=== PATIENT | female | born 1940 | race Caucasian/White ===

== ENCOUNTER 2022-12-23 03:34 | Inpatient (IN) | payer OTHER ==
[~2022-12-23] VITALS: Ht 172.7 cm; Wt 59.0 kg
[2022-12-23 03:34] VITALS: BP_SYST 156; PULSE 82; RESP 16; TEMP 97; O2SAT 93
[2022-12-23] MEDS ORDERED: NACL 0.9% 1,000 ML IV ONE (04:00)
[2022-12-23] MEDS ORDERED: MORPHINE 2 MG/ML INJ. SYRINGE IVP ONE ×2 (04:00→08:45)
[2022-12-23 04:15] LABS: BASOPHILS # (AUTO) 0.1 K/uL (0.0-0.2); BASOPHILS % (AUTO) 0.8 % (0.0-2.0); EOSINOPHILS # (AUTO) 0.1 K/uL (0.0-0.4); EOSINOPHILS % (AUTO) 1.2 % (0.0-4.0); HEMATOCRIT 37.8 % (36-48); HEMOGLOBIN 12.6 g/dL (12.0-16.0); LYMPHOCYTES # (AUTO) 0.9 K/uL (1.0-5.5); LYMPHOCYTES % (AUTO) 13.3 % (20.5-51.5); MEAN CORPUSCULAR HEMOGLOBIN 29 pg (27-31); MEAN CORPUSCULAR HGB CONC 33 % (32-36); MEAN CORPUSCULAR VOLUME 87 fL (79.0-98.0); MONOCYTES # (AUTO) 0.6 K/uL (0.0-1.0); MONOCYTES % (AUTO) 9.1 % (1.7-9.3); NEUTROPHILS # (AUTO) 5.3 K/uL (1.8-7.7); NEUTROPHILS % (AUTO) 75.6 % (40.0-70.0); PLATELET COUNT (AUTO) 419 K/uL (130-430); RED BLOOD CELL COUNT(AUTO) 4.33 MIL/uL (4.2-6.2); RED CELL DISTRIBUTION WIDTH 14.3 % (9.0-15.0)
[2022-12-23 04:30] LABS: ANION GAP 10 (5-15); CALCIUM 9.1 mg/dL (8.4-11.0); CHLORIDE 107 mmol/L (98-107); GLUCOSE 111 mg/dL (70-99); UREA NITROGEN, BLOOD 57 mg/dL (8-21)
[2022-12-23 04:32] LABS: PROTHROMBIN TIME 10.8 SECS (9.5-12.5)
[2022-12-23 04:36] LABS: ALANINE AMINOTRANSFERASE 29 U/L (12-78); ALBUMIN 3.5 g/dL (3.4-4.8); ASPARTATE AMINOTRANSFERASE 17 U/L (10-37); TOTAL BILIRUBIN 0.9 mg/dL (0.0-1.0)
[2022-12-23] MEDS ORDERED: PROPOFOL 200MG/ 20ML VIAL (DIPRIVAN) IV ONE ×2 (05:00→07:30)
[2022-12-23 05:30] LABS: BILIRUBIN,URINE 1+ (NEGATIVE); BLOOD, URINE NEGATIVE (NEGATIVE); CLARITY/URINE CLOUDY (CLEAR); COLOR,URINE YELLOW (YELLOW); GLUCOSE,URINE NEGATIVE (NEGATIVE); KETONES,URINE 1+ (NEGATIVE); LEUKOCYTE ESTERASE ,URINE 1+ (NEGATIVE); NITRITE, URINE NEGATIVE (NEGATIVE); PROTEIN URINE 1+ (NEGATIVE)
[2022-12-23 05:32] LABS: BACTERIA,URINE MANY /HPF (None Seen); RBC,URINE 0-3 /HPF (0-3); WBC,URINE 50-80 /HPF (0-3)
[2022-12-23] MEDS ORDERED: cefTRIAXone 1 GM in D5W 50 ML IV ONE (06:45)
[2022-12-23] MEDS ORDERED: ONDANSETRON HCL 4 MG/2 ML VIAL IVP ONE (07:00)
[2022-12-23] MEDS ORDERED: ALEN70TA84 PO (07:00)
[2022-12-23] MEDS ORDERED: MORPHINE 4 MG INJ. 4 MG/ML VIAL IVP ONE (07:00)
[2022-12-23] MEDS ORDERED: MV-M1CAP15 PO (07:02)
[2022-12-23] MEDS ORDERED: NOR10 PO (07:02)
[2022-12-23] MEDS ORDERED: ASPI-1393 PO (07:02)
[2022-12-23] MEDS ORDERED: SER25 PO (07:05)
[2022-12-23] MEDS ORDERED: LISI-209 PO (07:05)
[2022-12-23] MEDS ORDERED: VITD2000 PO (07:06)
[2022-12-23] MEDS ORDERED: ACET-73 PO (07:06)
[2022-12-23] MEDS ORDERED: LORA-259 PO (07:14)
[2022-12-23] MEDS ORDERED: cefTRIAXone 1 GM VIAL ONE (07:18)
[2022-12-23] MEDS ORDERED: ONDANSETRON HCL 4 MG/2 ML VIAL ONE (07:20)
[2022-12-23] MEDS ORDERED: MORPHINE 2 MG/ML INJ. SYRINGE ONE (08:50)
[2022-12-23] MEDS: D5/0.45 NS 1,000 ML IV SCH ×2 (11:47→21:56)
[2022-12-23 12:03] VITALS: BP_SYST 153; PULSE 95; RESP 18; TEMP 97.6
[2022-12-23 16:49] VITALS: BP_SYST 122; PULSE 82; RESP 18; TEMP 97; O2SAT 94
[2022-12-23 20:30] VITALS: BP_SYST 146; PULSE 76; RESP 18; TEMP 97.7; O2SAT 93
[2022-12-23] MEDS: ONDANSETRON HCL 4 MG/2 ML VIAL IVP PRN (21:56)
[2022-12-23] MEDS: MORPHINE 2 MG/ML INJ. SYRINGE IVP PRN (21:57)
[2022-12-24] VITALS (7 sets, daily range): BP systolic 121–150; PULSE 72–83; RESP 16–20; TEMP 97.6–98.5; O2SAT 93–98
[2022-12-24 07:21] LABS: ANION GAP 8 (5-15); CALCIUM 8.1 mg/dL (8.4-11.0); CHLORIDE 108 mmol/L (98-107); CREATININE 0.62 mg/dL (0.55-1.30); GLUCOSE 136 mg/dL (70-99); UREA NITROGEN, BLOOD 36 mg/dL (8-21)
[2022-12-24 07:22] LABS: BASOPHILS % (AUTO) 0.4 % (0.0-2.0); EOSINOPHILS # (AUTO) 0.2 K/uL (0.0-0.4); EOSINOPHILS % (AUTO) 2.5 % (0.0-4.0); HEMATOCRIT 33.4 % (36-48); HEMOGLOBIN 11.2 g/dL (12.0-16.0); LYMPHOCYTES # (AUTO) 1.2 K/uL (1.0-5.5); LYMPHOCYTES % (AUTO) 15.6 % (20.5-51.5); MEAN CORPUSCULAR HEMOGLOBIN 29 pg (27-31); MEAN CORPUSCULAR HGB CONC 34 % (32-36); MEAN CORPUSCULAR VOLUME 88 fL (79.0-98.0); MONOCYTES # (AUTO) 0.8 K/uL (0.0-1.0); MONOCYTES % (AUTO) 10.7 % (1.7-9.3); NEUTROPHILS # (AUTO) 5.3 K/uL (1.8-7.7); NEUTROPHILS % (AUTO) 70.8 % (40.0-70.0); PLATELET COUNT (AUTO) 359 K/uL (130-430); RED BLOOD CELL COUNT(AUTO) 3.81 MIL/uL (4.2-6.2); RED CELL DISTRIBUTION WIDTH 13.8 % (9.0-15.0); WHITE BLOOD COUNT (AUTO) 7.5 K/uL (4.8-10.8)
[2022-12-24] MEDS: D5/0.45 NS 1,000 ML IV SCH ×2 (08:52→23:03)
[2022-12-24] MEDS ORDERED: MELOXICAM 7.5 MG TABLET PO ONE (13:00)
[2022-12-24] MEDS: ENOXAPARIN SODIUM 60 MG/0.6 ML SYRINGE SUBCUT ONE ×2 (13:28→13:33)
[2022-12-24] MEDS: MORPHINE 4 MG INJ. 4 MG/ML VIAL IVP PRN (16:49)
[2022-12-24] MEDS: ENOXAPARIN SODIUM 60 MG/0.6 ML SYRINGE SUBCUT SCH (21:30)
[2022-12-25] VITALS: BP_SYST 135; PULSE 80; RESP 17; TEMP 97.6; O2SAT 94
[2022-12-25] MEDS: D5/0.45 NS 1,000 ML IV SCH ×3 (01:23→20:15)
[2022-12-25 08:00] VITALS: BP_SYST 148; PULSE 80; RESP 16; TEMP 97.5; O2SAT 96
[2022-12-25] MEDS: MELOXICAM 7.5 MG TABLET PO SCH (08:58)
[2022-12-25] MEDS: ENOXAPARIN SODIUM 60 MG/0.6 ML SYRINGE SUBCUT SCH ×2 (08:59→23:38)
[2022-12-25 16:33] VITALS: BP_SYST 156; PULSE 85; RESP 18; TEMP 98.3; O2SAT 92
[2022-12-25 20:00] VITALS: TEMP 98.4; O2SAT 98
[2022-12-26] VITALS (7 sets, daily range): BP systolic 143–161; PULSE 60–81; RESP 16–20; TEMP 97–98.8; O2SAT 93–98
[2022-12-26 05:31] LABS: BASOPHILS % (AUTO) 0.5 % (0.0-2.0); EOSINOPHILS # (AUTO) 0.2 K/uL (0.0-0.4); EOSINOPHILS % (AUTO) 3.7 % (0.0-4.0); HEMATOCRIT 32.6 % (36-48); HEMOGLOBIN 11.1 g/dL (12.0-16.0); LYMPHOCYTES # (AUTO) 1.4 K/uL (1.0-5.5); LYMPHOCYTES % (AUTO) 23.7 % (20.5-51.5); MEAN CORPUSCULAR HEMOGLOBIN 29 pg (27-31); MEAN CORPUSCULAR HGB CONC 34 % (32-36); MEAN CORPUSCULAR VOLUME 86 fL (79.0-98.0); MONOCYTES # (AUTO) 0.6 K/uL (0.0-1.0); MONOCYTES % (AUTO) 9.7 % (1.7-9.3); NEUTROPHILS # (AUTO) 3.7 K/uL (1.8-7.7); NEUTROPHILS % (AUTO) 62.4 % (40.0-70.0); PLATELET COUNT (AUTO) 365 K/uL (130-430); RED BLOOD CELL COUNT(AUTO) 3.81 MIL/uL (4.2-6.2); RED CELL DISTRIBUTION WIDTH 13.4 % (9.0-15.0)
[2022-12-26 05:36] LABS: ANION GAP 10 (5-15); CALCIUM 7.9 mg/dL (8.4-11.0); CHLORIDE 104 mmol/L (98-107); CREATININE 0.54 mg/dL (0.55-1.30); GLUCOSE 119 mg/dL (70-99); UREA NITROGEN, BLOOD 14 mg/dL (8-21)
[2022-12-26] MEDS: MELOXICAM 7.5 MG TABLET PO SCH (08:41)
[2022-12-26] MEDS: ENOXAPARIN SODIUM 60 MG/0.6 ML SYRINGE SUBCUT SCH ×2 (08:42→22:02)
[2022-12-26 10:53] LABS: BASOPHILS % (AUTO) 0.6 % (0.0-2.0); EOSINOPHILS # (AUTO) 0.2 K/uL (0.0-0.4); EOSINOPHILS % (AUTO) 2.7 % (0.0-4.0); HEMATOCRIT 32.8 % (36-48); HEMOGLOBIN 11.3 g/dL (12.0-16.0); LYMPHOCYTES # (AUTO) 1.2 K/uL (1.0-5.5); LYMPHOCYTES % (AUTO) 19.3 % (20.5-51.5); MEAN CORPUSCULAR HEMOGLOBIN 29 pg (27-31); MEAN CORPUSCULAR HGB CONC 35 % (32-36); MEAN CORPUSCULAR VOLUME 85 fL (79.0-98.0); MONOCYTES # (AUTO) 0.6 K/uL (0.0-1.0); MONOCYTES % (AUTO) 10.4 % (1.7-9.3); PLATELET COUNT (AUTO) 347 K/uL (130-430); RED BLOOD CELL COUNT(AUTO) 3.85 MIL/uL (4.2-6.2); RED CELL DISTRIBUTION WIDTH 13.4 % (9.0-15.0)
[2022-12-26] MEDS: D5/0.45 NS 1,000 ML IV SCH (16:44)
[2022-12-26 17:43] LABS: BASOPHILS % (AUTO) 0.3 % (0.0-2.0); EOSINOPHILS # (AUTO) 0.2 K/uL (0.0-0.4); EOSINOPHILS % (AUTO) 3.5 % (0.0-4.0); HEMATOCRIT 32.7 % (36-48); LYMPHOCYTES # (AUTO) 1.4 K/uL (1.0-5.5); LYMPHOCYTES % (AUTO) 22.4 % (20.5-51.5); MEAN CORPUSCULAR HEMOGLOBIN 29 pg (27-31); MEAN CORPUSCULAR HGB CONC 34 % (32-36); MEAN CORPUSCULAR VOLUME 85 fL (79.0-98.0); MONOCYTES # (AUTO) 0.6 K/uL (0.0-1.0); MONOCYTES % (AUTO) 9.7 % (1.7-9.3); NEUTROPHILS % (AUTO) 64.1 % (40.0-70.0); PLATELET COUNT (AUTO) 358 K/uL (130-430); RED BLOOD CELL COUNT(AUTO) 3.84 MIL/uL (4.2-6.2); RED CELL DISTRIBUTION WIDTH 13.3 % (9.0-15.0); WHITE BLOOD COUNT (AUTO) 6.2 K/uL (4.8-10.8)
[2022-12-27 00:44] VITALS: BP_SYST 155; PULSE 72; RESP 20; TEMP 97.6; O2SAT 96
[2022-12-27] MEDS: D5/0.45 NS 1,000 ML IV SCH ×3 (03:01→22:15)
[2022-12-27] MEDS ORDERED: POTASSIUM CHLORIDE 20 MEQ TAB.PRT.SR PO ONE (07:45)
[2022-12-27 08:00] VITALS: BP_SYST 138; PULSE 55; RESP 18; TEMP 97.7; O2SAT 94
[2022-12-27] MEDS: MELOXICAM 7.5 MG TABLET PO SCH (09:10)
[2022-12-27] MEDS: ENOXAPARIN SODIUM 60 MG/0.6 ML SYRINGE SUBCUT SCH ×2 (09:11→23:00)
[2022-12-27 11:50] VITALS: BP_SYST 135; PULSE 74; RESP 18; TEMP 98.4; O2SAT 96
[2022-12-27] MEDS: MORPHINE 2 MG/ML INJ. SYRINGE IVP PRN (14:55)
[2022-12-27 16:42] VITALS: BP_SYST 139; PULSE 68; RESP 18; TEMP 97.9; O2SAT 96
[2022-12-27] MEDS ORDERED: LORazepam 2 MG/ML VIAL IVP ONE (18:30)
[2022-12-27 20:00] VITALS: O2SAT 94
[2022-12-27 20:12] VITALS: BP_SYST 148; PULSE 68; RESP 18; TEMP 98.1; O2SAT 94
[2022-12-28 02:37] VITALS: BP_SYST 159; PULSE 74; RESP 17; TEMP 97.6; O2SAT 97
[2022-12-28] MEDS: MORPHINE 2 MG/ML INJ. SYRINGE IVP PRN (05:59)
[2022-12-28 07:53] LABS: BASOPHILS % (AUTO) 0.6 % (0.0-2.0); EOSINOPHILS # (AUTO) 0.2 K/uL (0.0-0.4); HEMATOCRIT 33.5 % (36-48); HEMOGLOBIN 11.4 g/dL (12.0-16.0); LYMPHOCYTES # (AUTO) 1.2 K/uL (1.0-5.5); LYMPHOCYTES % (AUTO) 19.7 % (20.5-51.5); MEAN CORPUSCULAR HEMOGLOBIN 29 pg (27-31); MEAN CORPUSCULAR HGB CONC 34 % (32-36); MEAN CORPUSCULAR VOLUME 86 fL (79.0-98.0); MONOCYTES # (AUTO) 0.7 K/uL (0.0-1.0); MONOCYTES % (AUTO) 11.5 % (1.7-9.3); NEUTROPHILS # (AUTO) 3.9 K/uL (1.8-7.7); NEUTROPHILS % (AUTO) 64.2 % (40.0-70.0); PLATELET COUNT (AUTO) 307 K/uL (130-430); RED CELL DISTRIBUTION WIDTH 13.6 % (9.0-15.0); WHITE BLOOD COUNT (AUTO) 6.1 K/uL (4.8-10.8)
[2022-12-28 08:00] VITALS: BP_SYST 156; PULSE 78; RESP 18; TEMP 97.8; O2SAT 96
[2022-12-28 08:10] LABS: ANION GAP 8 (5-15); CALCIUM 7.7 mg/dL (8.4-11.0); CHLORIDE 106 mmol/L (98-107); CREATININE 0.53 mg/dL (0.55-1.30); GLUCOSE 107 mg/dL (70-99); UREA NITROGEN, BLOOD 8 mg/dL (8-21)
[2022-12-28] MEDS: MELOXICAM 7.5 MG TABLET PO SCH ×2 (09:00→14:15)
[2022-12-28] MEDS: ENOXAPARIN SODIUM 60 MG/0.6 ML SYRINGE SUBCUT SCH ×2 (09:00→21:00)
[2022-12-28] MEDS: D5/0.45 NS 1,000 ML IV SCH ×2 (10:53→17:59)
[2022-12-28 12:30] VITALS: BP_SYST 145; PULSE 83; RESP 18; TEMP 97.8; O2SAT 95
[2022-12-28] MEDS ORDERED: ALENDRONATE SODIUM 70 MG TABLET (FOSAMAX) PO SCH (12:45)
[2022-12-28] MEDS ORDERED: [UNRECOGNIZED DRUG - OTHER] PO SCH (12:45)
[2022-12-28] MEDS ORDERED: CHOLECALCIFEROL (VITAMIN D3) 2,000 UNIT TABLET PO ONE (13:00)
[2022-12-28] MEDS ORDERED: MULTIVITS,CA,MINERALS/IRON/FA 1 TABLET PO ONE (13:00)
[2022-12-28] MEDS ORDERED: amLODIPine BESYLATE 10 MG TABLET PO ONE (13:00)
[2022-12-28] MEDS ORDERED: lisinopriL 5 MG TABLET PO ONE (13:00)
[2022-12-28] MEDS ORDERED: ASPIRIN 81 MG TABLET(ECOTRIN) PO ONE (13:00)
[2022-12-28] MEDS ORDERED: ACETAMINOPHEN 500 MG TABLET PO PRN (13:30)
[2022-12-28] MEDS: QUEtiapine FUMARATE 25 MG TABLET PO SCH ×2 (14:17→21:00)
[2022-12-28 16:00] VITALS: BP_SYST 111; PULSE 80; RESP 18; TEMP 96.7; O2SAT 97
[2022-12-28 19:00] VITALS: BP_SYST 127; PULSE 78; RESP 16; TEMP 96.9; O2SAT 96; O2SAT 98
[2022-12-28 20:00] VITALS: BP_SYST 127; PULSE 78; RESP 16; TEMP 96.9; O2SAT 96
[2022-12-29] VITALS (7 sets, daily range): BP systolic 118–157; PULSE 66–87; RESP 17–21; TEMP 98.8–99.6; O2SAT 93–99
[2022-12-29] MEDS: D5/0.45 NS 1,000 ML IV SCH ×3 (03:38→22:50)
[2022-12-29 04:45] LABS: BASOPHILS % (AUTO) 0.4 % (0.0-2.0); EOSINOPHILS # (AUTO) 0.2 K/uL (0.0-0.4); HEMATOCRIT 32.8 % (36-48); HEMOGLOBIN 11.2 g/dL (12.0-16.0); LYMPHOCYTES # (AUTO) 1.2 K/uL (1.0-5.5); LYMPHOCYTES % (AUTO) 18.5 % (20.5-51.5); MEAN CORPUSCULAR HEMOGLOBIN 29 pg (27-31); MEAN CORPUSCULAR HGB CONC 34 % (32-36); MEAN CORPUSCULAR VOLUME 85 fL (79.0-98.0); MONOCYTES # (AUTO) 0.8 K/uL (0.0-1.0); NEUTROPHILS # (AUTO) 4.2 K/uL (1.8-7.7); NEUTROPHILS % (AUTO) 66.1 % (40.0-70.0); PLATELET COUNT (AUTO) 295 K/uL (130-430); RED BLOOD CELL COUNT(AUTO) 3.84 MIL/uL (4.2-6.2); RED CELL DISTRIBUTION WIDTH 13.8 % (9.0-15.0); WHITE BLOOD COUNT (AUTO) 6.4 K/uL (4.8-10.8)
[2022-12-29 05:46] LABS: ALANINE AMINOTRANSFERASE 55 U/L (12-78); ALBUMIN 2.5 g/dL (3.4-4.8); ANION GAP 8 (5-15); ASPARTATE AMINOTRANSFERASE 28 U/L (10-37); CALCIUM 7.8 mg/dL (8.4-11.0); CHLORIDE 105 mmol/L (98-107); CREATININE 0.57 mg/dL (0.55-1.30); GLUCOSE 101 mg/dL (70-99); TOTAL BILIRUBIN 0.6 mg/dL (0.0-1.0); UREA NITROGEN, BLOOD 9 mg/dL (8-21)
[2022-12-29] MEDS: MELOXICAM 7.5 MG TABLET PO SCH (08:39)
[2022-12-29] MEDS: CHOLECALCIFEROL (VITAMIN D3) 2,000 UNIT TABLET PO SCH (08:39)
[2022-12-29] MEDS: ASPIRIN 81 MG TABLET(ECOTRIN) PO SCH (08:39)
[2022-12-29] MEDS: QUEtiapine FUMARATE 25 MG TABLET PO SCH ×3 (08:39→21:32)
[2022-12-29] MEDS: MULTIVITS,CA,MINERALS/IRON/FA 1 TABLET PO SCH (08:40)
[2022-12-29] MEDS: lisinopriL 5 MG TABLET PO SCH (08:40)
[2022-12-29] MEDS: amLODIPine BESYLATE 10 MG TABLET PO SCH (08:40)
[2022-12-29] MEDS: ENOXAPARIN SODIUM 60 MG/0.6 ML SYRINGE SUBCUT SCH ×2 (08:41→21:33)
[2022-12-29] MEDS: MORPHINE 2 MG/ML INJ. SYRINGE IVP PRN ×2 (08:45→13:19)
[2022-12-30] VITALS (7 sets, daily range): BP systolic 107–139; PULSE 70–80; RESP 16–19; TEMP 97.2–98.2; O2SAT 94–97
[2022-12-30] MEDS: MORPHINE 4 MG INJ. 4 MG/ML VIAL IVP PRN (04:44)
[2022-12-30 07:48] LABS: BASOPHILS % (AUTO) 0.5 % (0.0-2.0); EOSINOPHILS # (AUTO) 0.3 K/uL (0.0-0.4); HEMATOCRIT 35.5 % (36-48); LYMPHOCYTES # (AUTO) 1.6 K/uL (1.0-5.5); MEAN CORPUSCULAR HEMOGLOBIN 30 pg (27-31); MEAN CORPUSCULAR HGB CONC 34 % (32-36); MEAN CORPUSCULAR VOLUME 87 fL (79.0-98.0); MONOCYTES # (AUTO) 0.8 K/uL (0.0-1.0); MONOCYTES % (AUTO) 12.7 % (1.7-9.3); NEUTROPHILS # (AUTO) 3.6 K/uL (1.8-7.7); NEUTROPHILS % (AUTO) 56.8 % (40.0-70.0); PLATELET COUNT (AUTO) 286 K/uL (130-430); RED BLOOD CELL COUNT(AUTO) 4.09 MIL/uL (4.2-6.2); RED CELL DISTRIBUTION WIDTH 13.8 % (9.0-15.0); WHITE BLOOD COUNT (AUTO) 6.3 K/uL (4.8-10.8)
[2022-12-30 07:57] LABS: ANION GAP 10 (5-15); CALCIUM 8.3 mg/dL (8.4-11.0); CHLORIDE 107 mmol/L (98-107); CREATININE 0.62 mg/dL (0.55-1.30); GLUCOSE 96 mg/dL (70-99); UREA NITROGEN, BLOOD 10 mg/dL (8-21)
[2022-12-30] MEDS: D5/0.45 NS 1,000 ML IV SCH ×2 (09:20→20:15)
[2022-12-30] MEDS: MELOXICAM 7.5 MG TABLET PO SCH (09:52)
[2022-12-30] MEDS: ASPIRIN 81 MG TABLET(ECOTRIN) PO SCH (09:52)
[2022-12-30] MEDS: lisinopriL 5 MG TABLET PO SCH (09:52)
[2022-12-30] MEDS: CHOLECALCIFEROL (VITAMIN D3) 2,000 UNIT TABLET PO SCH (09:52)
[2022-12-30] MEDS: MULTIVITS,CA,MINERALS/IRON/FA 1 TABLET PO SCH (09:53)
[2022-12-30] MEDS: QUEtiapine FUMARATE 25 MG TABLET PO SCH ×3 (09:53→21:00)
[2022-12-30] MEDS: ENOXAPARIN SODIUM 60 MG/0.6 ML SYRINGE SUBCUT SCH ×2 (09:53→21:00)
[2022-12-30] MEDS: amLODIPine BESYLATE 10 MG TABLET PO SCH (09:53)
[2022-12-31 01:19] VITALS: BP_SYST 138; PULSE 69; RESP 17; TEMP 98.8; O2SAT 97
[2022-12-31] MEDS: MORPHINE 2 MG/ML INJ. SYRINGE IVP PRN ×2 (03:12→09:07)
[2022-12-31] MEDS: D5/0.45 NS 1,000 ML IV SCH ×2 (06:15→14:34)
[2022-12-31 08:00] VITALS: BP_SYST 128; PULSE 75; RESP 18; TEMP 96.9; O2SAT 96; O2SAT 97
[2022-12-31] MEDS: QUEtiapine FUMARATE 25 MG TABLET PO SCH ×3 (09:04→21:55)
[2022-12-31] MEDS: ENOXAPARIN SODIUM 60 MG/0.6 ML SYRINGE SUBCUT SCH ×2 (09:04→21:55)
[2022-12-31] MEDS: amLODIPine BESYLATE 10 MG TABLET PO SCH (09:05)
[2022-12-31] MEDS: lisinopriL 5 MG TABLET PO SCH (09:05)
[2022-12-31] MEDS: MULTIVITS,CA,MINERALS/IRON/FA 1 TABLET PO SCH (09:06)
[2022-12-31] MEDS: ASPIRIN 81 MG TABLET(ECOTRIN) PO SCH (09:06)
[2022-12-31] MEDS: MELOXICAM 7.5 MG TABLET PO SCH (09:06)
[2022-12-31] MEDS: CHOLECALCIFEROL (VITAMIN D3) 2,000 UNIT TABLET PO SCH (09:06)
[2022-12-31 13:13] VITALS: BP_SYST 113; PULSE 78; RESP 16; TEMP 97.1; O2SAT 97
[2022-12-31 18:40] VITALS: BP_SYST 135; PULSE 64; RESP 14; TEMP 96.9; O2SAT 93
[2022-12-31 20:00] VITALS: BP_SYST 135; PULSE 71; RESP 16; TEMP 97.7; O2SAT 95
[2022-12-31 22:25] VITALS: O2SAT 97
[2023-01-01 02:08] VITALS: BP_SYST 152; PULSE 66; RESP 17; TEMP 97.8; O2SAT 95
[2023-01-01] MEDS: D5/0.45 NS 1,000 ML IV SCH (03:24)
[2023-01-01 06:18] LABS: BASOPHILS % (AUTO) 0.5 % (0.0-2.0); EOSINOPHILS # (AUTO) 0.2 K/uL (0.0-0.4); EOSINOPHILS % (AUTO) 5.2 % (0.0-4.0); HEMATOCRIT 32.3 % (36-48); HEMOGLOBIN 11.1 g/dL (12.0-16.0); LYMPHOCYTES # (AUTO) 1.3 K/uL (1.0-5.5); LYMPHOCYTES % (AUTO) 29.3 % (20.5-51.5); MEAN CORPUSCULAR HEMOGLOBIN 29 pg (27-31); MEAN CORPUSCULAR HGB CONC 34 % (32-36); MEAN CORPUSCULAR VOLUME 86 fL (79.0-98.0); MONOCYTES # (AUTO) 0.6 K/uL (0.0-1.0); NEUTROPHILS # (AUTO) 2.2 K/uL (1.8-7.7); PLATELET COUNT (AUTO) 281 K/uL (130-430); RED BLOOD CELL COUNT(AUTO) 3.76 MIL/uL (4.2-6.2); RED CELL DISTRIBUTION WIDTH 13.4 % (9.0-15.0); WHITE BLOOD COUNT (AUTO) 4.4 K/uL (4.8-10.8)
[2023-01-01 06:37] LABS: ANION GAP 8 (5-15); CALCIUM 7.8 mg/dL (8.4-11.0); CHLORIDE 107 mmol/L (98-107); CREATININE 0.53 mg/dL (0.55-1.30); GLUCOSE 108 mg/dL (70-99); UREA NITROGEN, BLOOD 6 mg/dL (8-21)
[2023-01-01 08:00] VITALS: BP_SYST 147; PULSE 80; RESP 18; TEMP 97.6; O2SAT 96
[2023-01-01] MEDS ORDERED: POTASSIUM CHLORIDE 40 MEQ, LIDOCAINE JECT 2% PF 100 MG 75 MG in NS 250 ML IV ONE (08:15)
[2023-01-01] MEDS: lisinopriL 5 MG TABLET PO SCH (08:57)
[2023-01-01] MEDS: amLODIPine BESYLATE 10 MG TABLET PO SCH (08:58)
[2023-01-01] MEDS: QUEtiapine FUMARATE 25 MG TABLET PO SCH ×3 (08:58→21:34)
[2023-01-01] MEDS: ASPIRIN 81 MG TABLET(ECOTRIN) PO SCH (08:58)
[2023-01-01] MEDS: MULTIVITS,CA,MINERALS/IRON/FA 1 TABLET PO SCH (08:58)
[2023-01-01] MEDS: CHOLECALCIFEROL (VITAMIN D3) 2,000 UNIT TABLET PO SCH (08:58)
[2023-01-01] MEDS: MELOXICAM 7.5 MG TABLET PO SCH (08:59)
[2023-01-01] MEDS: ENOXAPARIN SODIUM 60 MG/0.6 ML SYRINGE SUBCUT SCH ×2 (08:59→21:36)
[2023-01-01] MEDS: ONDANSETRON HCL 4 MG/2 ML VIAL IVP PRN (09:04)
[2023-01-01] MEDS: MORPHINE 2 MG/ML INJ. SYRINGE IVP PRN ×3 (09:05→18:03)
[2023-01-01 11:19] VITALS: BP_SYST 110; PULSE 74; RESP 16; TEMP 98.2; O2SAT 94
[2023-01-01] MEDS: KCL 10 mEq in D5/0.45NS 1000mL 1,000 ML IV SCH (14:24)
[2023-01-01 17:26] VITALS: BP_SYST 114; PULSE 76; RESP 17; TEMP 98.4; O2SAT 94
[2023-01-01 20:00] VITALS: PULSE 81; RESP 18; TEMP 97.1; O2SAT 96
[2023-01-02] VITALS (7 sets, daily range): BP systolic 113–138; PULSE 64–85; RESP 13–20; TEMP 96.6–98.1; O2SAT 93–97
[2023-01-02] MEDS: KCL 10 mEq in D5/0.45NS 1000mL 1,000 ML IV SCH ×3 (02:12→22:12)
[2023-01-02 05:50] LABS: BASOPHILS % (AUTO) 0.5 % (0.0-2.0); EOSINOPHILS # (AUTO) 0.3 K/uL (0.0-0.4); EOSINOPHILS % (AUTO) 5.4 % (0.0-4.0); HEMOGLOBIN 10.8 g/dL (12.0-16.0); LYMPHOCYTES # (AUTO) 1.5 K/uL (1.0-5.5); LYMPHOCYTES % (AUTO) 32.5 % (20.5-51.5); MEAN CORPUSCULAR HEMOGLOBIN 29 pg (27-31); MEAN CORPUSCULAR HGB CONC 34 % (32-36); MEAN CORPUSCULAR VOLUME 87 fL (79.0-98.0); MONOCYTES # (AUTO) 0.6 K/uL (0.0-1.0); NEUTROPHILS # (AUTO) 2.3 K/uL (1.8-7.7); NEUTROPHILS % (AUTO) 49.6 % (40.0-70.0); PLATELET COUNT (AUTO) 283 K/uL (130-430); RED CELL DISTRIBUTION WIDTH 13.6 % (9.0-15.0); WHITE BLOOD COUNT (AUTO) 4.6 K/uL (4.8-10.8)
[2023-01-02 06:07] LABS: ANION GAP 7 (5-15); CALCIUM 7.7 mg/dL (8.4-11.0); CHLORIDE 108 mmol/L (98-107); CREATININE 0.61 mg/dL (0.55-1.30); GLUCOSE 107 mg/dL (70-99); UREA NITROGEN, BLOOD 7 mg/dL (8-21)
[2023-01-02] MEDS: MELOXICAM 7.5 MG TABLET PO SCH (10:16)
[2023-01-02] MEDS: CHOLECALCIFEROL (VITAMIN D3) 2,000 UNIT TABLET PO SCH (10:17)
[2023-01-02] MEDS: ASPIRIN 81 MG TABLET(ECOTRIN) PO SCH (10:17)
[2023-01-02] MEDS: amLODIPine BESYLATE 10 MG TABLET PO SCH (10:17)
[2023-01-02] MEDS: lisinopriL 5 MG TABLET PO SCH (10:17)
[2023-01-02] MEDS: MULTIVITS,CA,MINERALS/IRON/FA 1 TABLET PO SCH (10:18)
[2023-01-02] MEDS: QUEtiapine FUMARATE 25 MG TABLET PO SCH ×3 (10:18→22:12)
[2023-01-02] MEDS: ENOXAPARIN SODIUM 60 MG/0.6 ML SYRINGE SUBCUT SCH ×2 (10:18→22:12)
[2023-01-03] VITALS: BP_SYST 142; PULSE 75; RESP 16; TEMP 98.2; O2SAT 96
[2023-01-03] MEDS: MORPHINE 2 MG/ML INJ. SYRINGE IVP PRN (04:34)
[2023-01-03] MEDS: KCL 10 mEq in D5/0.45NS 1000mL 1,000 ML IV SCH ×2 (05:00→10:25)
[2023-01-03] MEDS: LORazepam 1 MG TABLET PO PRN (05:06)
[2023-01-03 08:51] VITALS: BP_SYST 104; PULSE 76; RESP 16; TEMP 99.3; O2SAT 94
[2023-01-03] MEDS: MELOXICAM 7.5 MG TABLET PO SCH (10:33)
[2023-01-03] MEDS: amLODIPine BESYLATE 10 MG TABLET PO SCH (10:33)
[2023-01-03] MEDS: QUEtiapine FUMARATE 25 MG TABLET PO SCH ×3 (10:33→21:00)
[2023-01-03] MEDS: MULTIVITS,CA,MINERALS/IRON/FA 1 TABLET PO SCH (10:34)
[2023-01-03] MEDS: CHOLECALCIFEROL (VITAMIN D3) 2,000 UNIT TABLET PO SCH (10:34)
[2023-01-03] MEDS: lisinopriL 5 MG TABLET PO SCH (10:34)
[2023-01-03] MEDS: ASPIRIN 81 MG TABLET(ECOTRIN) PO SCH (10:34)
[2023-01-03] MEDS: ENOXAPARIN SODIUM 60 MG/0.6 ML SYRINGE SUBCUT SCH ×2 (10:35→21:00)
[2023-01-03 11:24] VITALS: BP_SYST 110; PULSE 76; RESP 16; TEMP 97.6; O2SAT 96
[2023-01-03 15:22] VITALS: BP_SYST 150; PULSE 74; RESP 16; TEMP 96.1; O2SAT 95
[2023-01-04] VITALS: BP_SYST 112; PULSE 78; RESP 16; TEMP 98.1; O2SAT 96
[2023-01-04] MEDS: KCL 10 mEq in D5/0.45NS 1000mL 1,000 ML IV SCH ×3 (03:35→22:45)
[2023-01-04 08:00] VITALS: BP_SYST 156; PULSE 77; RESP 18; TEMP 98.6; O2SAT 98
[2023-01-04 08:05] LABS: BASOPHILS % (AUTO) 0.4 % (0.0-2.0); EOSINOPHILS # (AUTO) 0.2 K/uL (0.0-0.4); EOSINOPHILS % (AUTO) 2.8 % (0.0-4.0); HEMATOCRIT 33.2 % (36-48); HEMOGLOBIN 11.2 g/dL (12.0-16.0); LYMPHOCYTES # (AUTO) 1.7 K/uL (1.0-5.5); LYMPHOCYTES % (AUTO) 22.3 % (20.5-51.5); MEAN CORPUSCULAR HEMOGLOBIN 29 pg (27-31); MEAN CORPUSCULAR HGB CONC 34 % (32-36); MEAN CORPUSCULAR VOLUME 86 fL (79.0-98.0); MONOCYTES # (AUTO) 0.7 K/uL (0.0-1.0); MONOCYTES % (AUTO) 8.8 % (1.7-9.3); NEUTROPHILS # (AUTO) 4.9 K/uL (1.8-7.7); NEUTROPHILS % (AUTO) 65.7 % (40.0-70.0); PLATELET COUNT (AUTO) 354 K/uL (130-430); RED BLOOD CELL COUNT(AUTO) 3.86 MIL/uL (4.2-6.2); RED CELL DISTRIBUTION WIDTH 13.5 % (9.0-15.0); WHITE BLOOD COUNT (AUTO) 7.4 K/uL (4.8-10.8)
[2023-01-04 08:24] LABS: ALANINE AMINOTRANSFERASE 34 U/L (12-78); ALBUMIN 2.4 g/dL (3.4-4.8); ANION GAP 8 (5-15); ASPARTATE AMINOTRANSFERASE 22 U/L (10-37); CHLORIDE 104 mmol/L (98-107); CREATININE 0.59 mg/dL (0.55-1.30); GLUCOSE 99 mg/dL (70-99); PHOSPHORUS 3.7 mg/dL (2.7-4.5); TOTAL BILIRUBIN 0.5 mg/dL (0.0-1.0); UREA NITROGEN, BLOOD 5 mg/dL (8-21)
[2023-01-04] MEDS: MORPHINE 2 MG/ML INJ. SYRINGE IVP PRN ×2 (08:45→20:45)
[2023-01-04] MEDS: ENOXAPARIN SODIUM 60 MG/0.6 ML SYRINGE SUBCUT SCH ×2 (08:49→22:44)
[2023-01-04] MEDS: QUEtiapine FUMARATE 25 MG TABLET PO SCH ×3 (08:50→20:46)
[2023-01-04] MEDS: CHOLECALCIFEROL (VITAMIN D3) 2,000 UNIT TABLET PO SCH (08:51)
[2023-01-04] MEDS: lisinopriL 5 MG TABLET PO SCH (08:51)
[2023-01-04] MEDS: MELOXICAM 7.5 MG TABLET PO SCH (08:51)
[2023-01-04] MEDS: amLODIPine BESYLATE 10 MG TABLET PO SCH (08:51)
[2023-01-04] MEDS: ASPIRIN 81 MG TABLET(ECOTRIN) PO SCH (08:51)
[2023-01-04] MEDS: MULTIVITS,CA,MINERALS/IRON/FA 1 TABLET PO SCH (08:51)
[2023-01-04 11:21] VITALS: BP_SYST 149; PULSE 83; RESP 16; TEMP 97.7; O2SAT 96
[2023-01-04 15:44] VITALS: BP_SYST 136; PULSE 78; RESP 16; TEMP 97.7; O2SAT 93
[2023-01-04 20:00] VITALS: BP_SYST 159; PULSE 85; RESP 18; TEMP 97.8; O2SAT 97
[2023-01-04] MEDS: LORazepam 1 MG TABLET PO PRN (20:46)
[2023-01-05 01:57] VITALS: BP_SYST 132; PULSE 72; RESP 16; TEMP 97.8; O2SAT 95
[2023-01-05] MEDS: MORPHINE 4 MG INJ. 4 MG/ML VIAL IVP PRN ×2 (05:13→06:02)
[2023-01-05] MEDS: KCL 10 mEq in D5/0.45NS 1000mL 1,000 ML IV SCH ×2 (07:00→09:58)
[2023-01-05 08:23] VITALS: BP_SYST 115; PULSE 76; RESP 16; TEMP 97.6; O2SAT 96
[2023-01-05] MEDS: ENOXAPARIN SODIUM 60 MG/0.6 ML SYRINGE SUBCUT SCH ×2 (09:56→22:32)
[2023-01-05] MEDS: QUEtiapine FUMARATE 25 MG TABLET PO SCH ×3 (09:56→22:31)
[2023-01-05] MEDS: ASPIRIN 81 MG TABLET(ECOTRIN) PO SCH (09:56)
[2023-01-05] MEDS: MULTIVITS,CA,MINERALS/IRON/FA 1 TABLET PO SCH (09:57)
[2023-01-05] MEDS: CHOLECALCIFEROL (VITAMIN D3) 2,000 UNIT TABLET PO SCH (09:57)
[2023-01-05] MEDS: MELOXICAM 7.5 MG TABLET PO SCH (09:57)
[2023-01-05] MEDS: lisinopriL 5 MG TABLET PO SCH (09:57)
[2023-01-05] MEDS: amLODIPine BESYLATE 10 MG TABLET PO SCH (09:57)
[2023-01-05 11:36] VITALS: BP_SYST 146; PULSE 79; RESP 16; TEMP 97.6; O2SAT 97
[2023-01-05] MEDS ORDERED: POTASSIUM CHLORIDE 20 MEQ TAB.PRT.SR PO ONE (13:30)
[2023-01-05] MEDS: ACETAMINOPHEN 500 MG TABLET PO PRN (15:04)
[2023-01-05 15:34] VITALS: BP_SYST 137; PULSE 79; RESP 16; TEMP 97.2; O2SAT 94
[2023-01-06 00:23] VITALS: BP_SYST 133; PULSE 67; RESP 19; TEMP 98.3; O2SAT 96
[2023-01-06] MEDS: KCL 10 mEq in D5/0.45NS 1000mL 1,000 ML IV SCH ×3 (04:04→19:09)
[2023-01-06] MEDS: MORPHINE 2 MG/ML INJ. SYRINGE IVP PRN (04:05)
[2023-01-06 04:35] LABS: BASOPHILS % (AUTO) 0.7 % (0.0-2.0); EOSINOPHILS # (AUTO) 0.3 K/uL (0.0-0.4); EOSINOPHILS % (AUTO) 5.7 % (0.0-4.0); HEMATOCRIT 31.1 % (36-48); HEMOGLOBIN 10.6 g/dL (12.0-16.0); LYMPHOCYTES # (AUTO) 1.4 K/uL (1.0-5.5); LYMPHOCYTES % (AUTO) 31.2 % (20.5-51.5); MEAN CORPUSCULAR HEMOGLOBIN 29 pg (27-31); MEAN CORPUSCULAR HGB CONC 34 % (32-36); MEAN CORPUSCULAR VOLUME 85 fL (79.0-98.0); MONOCYTES # (AUTO) 0.6 K/uL (0.0-1.0); MONOCYTES % (AUTO) 14.4 % (1.7-9.3); NEUTROPHILS # (AUTO) 2.1 K/uL (1.8-7.7); PLATELET COUNT (AUTO) 320 K/uL (130-430); RED BLOOD CELL COUNT(AUTO) 3.65 MIL/uL (4.2-6.2); RED CELL DISTRIBUTION WIDTH 13.6 % (9.0-15.0); WHITE BLOOD COUNT (AUTO) 4.4 K/uL (4.8-10.8)
[2023-01-06 05:02] LABS: ANION GAP 6 (5-15); CALCIUM 8.1 mg/dL (8.4-11.0); CHLORIDE 107 mmol/L (98-107); CREATININE 0.59 mg/dL (0.55-1.30); GLUCOSE 89 mg/dL (70-99); UREA NITROGEN, BLOOD 10 mg/dL (8-21)
[2023-01-06 08:12] VITALS: BP_SYST 129; PULSE 72; RESP 18; TEMP 99; O2SAT 95
[2023-01-06] MEDS: ENOXAPARIN SODIUM 60 MG/0.6 ML SYRINGE SUBCUT SCH ×2 (10:14→20:50)
[2023-01-06] MEDS: MELOXICAM 7.5 MG TABLET PO SCH (10:14)
[2023-01-06] MEDS: ASPIRIN 81 MG TABLET(ECOTRIN) PO SCH (10:14)
[2023-01-06] MEDS: MULTIVITS,CA,MINERALS/IRON/FA 1 TABLET PO SCH (10:14)
[2023-01-06] MEDS: CHOLECALCIFEROL (VITAMIN D3) 2,000 UNIT TABLET PO SCH (10:14)
[2023-01-06] MEDS: QUEtiapine FUMARATE 25 MG TABLET PO SCH ×3 (10:14→20:50)
[2023-01-06] MEDS: lisinopriL 5 MG TABLET PO SCH (10:14)
[2023-01-06] MEDS: amLODIPine BESYLATE 10 MG TABLET PO SCH (10:15)
[2023-01-06 13:14] VITALS: BP_SYST 114; PULSE 75; RESP 16; TEMP 97.2; O2SAT 94
[2023-01-06 18:19] VITALS: BP_SYST 126; PULSE 78; RESP 16; TEMP 97.7; O2SAT 96
[2023-01-06 20:00] VITALS: O2SAT 96
[2023-01-06 20:30] VITALS: BP_SYST 116; PULSE 74; RESP 16; TEMP 97.6; O2SAT 96
[2023-01-07 00:18] VITALS: BP_SYST 123; PULSE 80; RESP 18; TEMP 98; O2SAT 96
[2023-01-07 08:00] VITALS: BP_SYST 148; PULSE 76; RESP 16; TEMP 97.8; O2SAT 98
[2023-01-07] MEDS: KCL 10 mEq in D5/0.45NS 1000mL 1,000 ML IV SCH ×2 (08:05→20:17)
[2023-01-07] MEDS: MELOXICAM 7.5 MG TABLET PO SCH (09:23)
[2023-01-07] MEDS: CHOLECALCIFEROL (VITAMIN D3) 2,000 UNIT TABLET PO SCH (09:23)
[2023-01-07] MEDS: QUEtiapine FUMARATE 25 MG TABLET PO SCH ×3 (09:23→21:58)
[2023-01-07] MEDS: ASPIRIN 81 MG TABLET(ECOTRIN) PO SCH (09:23)
[2023-01-07] MEDS: MULTIVITS,CA,MINERALS/IRON/FA 1 TABLET PO SCH (09:23)
[2023-01-07] MEDS: amLODIPine BESYLATE 10 MG TABLET PO SCH (09:24)
[2023-01-07] MEDS: lisinopriL 5 MG TABLET PO SCH (09:24)
[2023-01-07] MEDS: ENOXAPARIN SODIUM 60 MG/0.6 ML SYRINGE SUBCUT SCH ×2 (09:25→21:58)
[2023-01-07 11:18] VITALS: BP_SYST 123; PULSE 77; RESP 16; TEMP 97.2; O2SAT 98
[2023-01-07 14:39] VITALS: O2SAT 98
[2023-01-07 15:07] VITALS: BP_SYST 131; PULSE 67; RESP 16; TEMP 97.7; O2SAT 94
[2023-01-07 20:00] VITALS: BP_SYST 126; PULSE 70; RESP 16; TEMP 98; O2SAT 98
[2023-01-08 01:20] VITALS: O2SAT 97
[2023-01-08 01:45] VITALS: BP_SYST 130; PULSE 67; RESP 16; TEMP 97.4; O2SAT 94
[2023-01-08] MEDS: KCL 10 mEq in D5/0.45NS 1000mL 1,000 ML IV SCH ×2 (06:42→15:15)
[2023-01-08 09:46] VITALS: BP_SYST 122; PULSE 87; RESP 20; TEMP 99; O2SAT 98
[2023-01-08] MEDS: CHOLECALCIFEROL (VITAMIN D3) 2,000 UNIT TABLET PO SCH (09:48)
[2023-01-08] MEDS: MULTIVITS,CA,MINERALS/IRON/FA 1 TABLET PO SCH (09:48)
[2023-01-08] MEDS: MELOXICAM 7.5 MG TABLET PO SCH (09:48)
[2023-01-08] MEDS: amLODIPine BESYLATE 10 MG TABLET PO SCH (09:49)
[2023-01-08] MEDS: lisinopriL 5 MG TABLET PO SCH (09:49)
[2023-01-08] MEDS: QUEtiapine FUMARATE 25 MG TABLET PO SCH ×3 (09:49→21:40)
[2023-01-08] MEDS: ASPIRIN 81 MG TABLET(ECOTRIN) PO SCH (09:49)
[2023-01-08] MEDS: ENOXAPARIN SODIUM 60 MG/0.6 ML SYRINGE SUBCUT SCH ×2 (09:50→21:39)
[2023-01-08] MEDS: ACETAMINOPHEN 500 MG TABLET PO PRN ×2 (10:11→21:40)
[2023-01-08 11:22] VITALS: BP_SYST 105; PULSE 82; RESP 20; TEMP 99.5; O2SAT 96
[2023-01-08 16:52] VITALS: BP_SYST 110; PULSE 80; RESP 20; TEMP 98.6; O2SAT 96
[2023-01-08 19:40] VITALS: BP_SYST 121; PULSE 63; RESP 18; TEMP 98.6; O2SAT 95
[2023-01-09 00:21] VITALS: BP_SYST 115; PULSE 82; RESP 18; TEMP 98.1; O2SAT 97
[2023-01-09] MEDS: KCL 10 mEq in D5/0.45NS 1000mL 1,000 ML IV SCH ×3 (01:59→21:44)
[2023-01-09 04:42] LABS: BASOPHILS % (AUTO) 0.5 % (0.0-2.0); EOSINOPHILS # (AUTO) 0.3 K/uL (0.0-0.4); EOSINOPHILS % (AUTO) 3.8 % (0.0-4.0); HEMOGLOBIN 9.9 g/dL (12.0-16.0); LYMPHOCYTES # (AUTO) 2.2 K/uL (1.0-5.5); LYMPHOCYTES % (AUTO) 26.7 % (20.5-51.5); MEAN CORPUSCULAR HEMOGLOBIN 29 pg (27-31); MEAN CORPUSCULAR HGB CONC 34 % (32-36); MEAN CORPUSCULAR VOLUME 85 fL (79.0-98.0); MONOCYTES # (AUTO) 0.7 K/uL (0.0-1.0); MONOCYTES % (AUTO) 9.2 % (1.7-9.3); NEUTROPHILS # (AUTO) 4.8 K/uL (1.8-7.7); NEUTROPHILS % (AUTO) 59.8 % (40.0-70.0); PLATELET COUNT (AUTO) 317 K/uL (130-430); RED CELL DISTRIBUTION WIDTH 13.8 % (9.0-15.0)
[2023-01-09 05:16] LABS: ALANINE AMINOTRANSFERASE 25 U/L (12-78); ALBUMIN 2.2 g/dL (3.4-4.8); ANION GAP 7 (5-15); ASPARTATE AMINOTRANSFERASE 13 U/L (10-37); CALCIUM 7.9 mg/dL (8.4-11.0); CHLORIDE 106 mmol/L (98-107); CREATININE 0.65 mg/dL (0.55-1.30); GLUCOSE 96 mg/dL (70-99); TOTAL BILIRUBIN 0.4 mg/dL (0.0-1.0); UREA NITROGEN, BLOOD 10 mg/dL (8-21)
[2023-01-09 06:17] LABS: BASOPHILS % (AUTO) 0.5 % (0.0-2.0); EOSINOPHILS # (AUTO) 0.3 K/uL (0.0-0.4); EOSINOPHILS % (AUTO) 3.2 % (0.0-4.0); HEMOGLOBIN 9.8 g/dL (12.0-16.0); LYMPHOCYTES # (AUTO) 2.1 K/uL (1.0-5.5); LYMPHOCYTES % (AUTO) 26.3 % (20.5-51.5); MEAN CORPUSCULAR HEMOGLOBIN 29 pg (27-31); MEAN CORPUSCULAR HGB CONC 34 % (32-36); MEAN CORPUSCULAR VOLUME 86 fL (79.0-98.0); MONOCYTES # (AUTO) 0.8 K/uL (0.0-1.0); MONOCYTES % (AUTO) 9.7 % (1.7-9.3); NEUTROPHILS # (AUTO) 4.7 K/uL (1.8-7.7); NEUTROPHILS % (AUTO) 60.3 % (40.0-70.0); PLATELET COUNT (AUTO) 312 K/uL (130-430); RED BLOOD CELL COUNT(AUTO) 3.37 MIL/uL (4.2-6.2); RED CELL DISTRIBUTION WIDTH 13.7 % (9.0-15.0); WHITE BLOOD COUNT (AUTO) 7.8 K/uL (4.8-10.8)
[2023-01-09 07:50] VITALS: BP_SYST 134; PULSE 63; RESP 23; TEMP 97.8; O2SAT 99
[2023-01-09] MEDS: MELOXICAM 7.5 MG TABLET PO SCH (09:02)
[2023-01-09] MEDS: MULTIVITS,CA,MINERALS/IRON/FA 1 TABLET PO SCH (09:02)
[2023-01-09] MEDS: CHOLECALCIFEROL (VITAMIN D3) 2,000 UNIT TABLET PO SCH (09:03)
[2023-01-09] MEDS: ASPIRIN 81 MG TABLET(ECOTRIN) PO SCH (09:03)
[2023-01-09] MEDS: QUEtiapine FUMARATE 25 MG TABLET PO SCH ×3 (09:04→21:47)
[2023-01-09] MEDS: ENOXAPARIN SODIUM 60 MG/0.6 ML SYRINGE SUBCUT SCH ×2 (09:04→21:49)
[2023-01-09] MEDS: lisinopriL 5 MG TABLET PO SCH (09:05)
[2023-01-09] MEDS: amLODIPine BESYLATE 10 MG TABLET PO SCH (09:05)
[2023-01-09] MEDS: ACETAMINOPHEN 500 MG TABLET PO PRN (10:20)
[2023-01-09] MEDS ORDERED: traMADol HCL HCL 50 MG TABLET (ULTRAM) PO ONE (10:45)
[2023-01-09 11:22] VITALS: BP_SYST 104; PULSE 66; RESP 18; TEMP 98; O2SAT 97
[2023-01-09 16:13] VITALS: BP_SYST 122; PULSE 73; RESP 18; TEMP 98.2; O2SAT 96
[2023-01-09 20:00] VITALS: BP_SYST 115; PULSE 76; RESP 18; TEMP 97.5; O2SAT 93
[2023-01-09 20:15] VITALS: O2SAT 94
[2023-01-09] MEDS: HYDROcodone/ACETAMIN 5-325 MG TAB (NORCO/ VICODIN) PO PRN (21:46)
[2023-01-10 00:21] VITALS: BP_SYST 128; PULSE 68; RESP 16; TEMP 97.4; O2SAT 95
[2023-01-10] MEDS: KCL 10 mEq in D5/0.45NS 1000mL 1,000 ML IV SCH ×2 (07:31→18:18)
[2023-01-10 07:57] VITALS: BP_SYST 117; PULSE 60; RESP 14; TEMP 97.4; O2SAT 96
[2023-01-10] MEDS: MELOXICAM 7.5 MG TABLET PO SCH (09:20)
[2023-01-10] MEDS: MULTIVITS,CA,MINERALS/IRON/FA 1 TABLET PO SCH (09:20)
[2023-01-10] MEDS: lisinopriL 5 MG TABLET PO SCH (09:20)
[2023-01-10] MEDS: ASPIRIN 81 MG TABLET(ECOTRIN) PO SCH (09:20)
[2023-01-10] MEDS: amLODIPine BESYLATE 5 MG TABLET PO SCH (09:20)
[2023-01-10] MEDS: QUEtiapine FUMARATE 25 MG TABLET PO SCH ×3 (09:20→20:41)
[2023-01-10] MEDS: ENOXAPARIN SODIUM 60 MG/0.6 ML SYRINGE SUBCUT SCH ×3 (09:21→21:00)
[2023-01-10] MEDS: CHOLECALCIFEROL (VITAMIN D3) 2,000 UNIT TABLET PO SCH (09:21)
[2023-01-10] MEDS: HYDROcodone/ACETAMIN 5-325 MG TAB (NORCO/ VICODIN) PO PRN ×2 (10:07→20:41)
[2023-01-10 11:54] VITALS: BP_SYST 110; PULSE 84; RESP 18; TEMP 98.4; O2SAT 93
[2023-01-10 18:10] VITALS: BP_SYST 114; PULSE 74; RESP 18; TEMP 98.8; O2SAT 96
[2023-01-10 22:42] VITALS: O2SAT 94
[2023-01-11 02:05] VITALS: BP_SYST 143; PULSE 74; RESP 17; TEMP 98.6; O2SAT 99
[2023-01-11 05:53] LABS: BASOPHILS % (AUTO) 0.5 % (0.0-2.0); EOSINOPHILS # (AUTO) 0.3 K/uL (0.0-0.4); EOSINOPHILS % (AUTO) 3.9 % (0.0-4.0); HEMATOCRIT 30.9 % (36-48); HEMOGLOBIN 10.5 g/dL (12.0-16.0); LYMPHOCYTES # (AUTO) 1.7 K/uL (1.0-5.5); LYMPHOCYTES % (AUTO) 22.6 % (20.5-51.5); MEAN CORPUSCULAR HEMOGLOBIN 29 pg (27-31); MEAN CORPUSCULAR HGB CONC 34 % (32-36); MEAN CORPUSCULAR VOLUME 86 fL (79.0-98.0); MONOCYTES # (AUTO) 0.7 K/uL (0.0-1.0); MONOCYTES % (AUTO) 8.8 % (1.7-9.3); NEUTROPHILS # (AUTO) 4.9 K/uL (1.8-7.7); NEUTROPHILS % (AUTO) 64.2 % (40.0-70.0); PLATELET COUNT (AUTO) 361 K/uL (130-430); RED CELL DISTRIBUTION WIDTH 13.5 % (9.0-15.0); WHITE BLOOD COUNT (AUTO) 7.6 K/uL (4.8-10.8)
[2023-01-11 06:03] LABS: ANION GAP 4 (5-15); CALCIUM 8.4 mg/dL (8.4-11.0); CHLORIDE 105 mmol/L (98-107); CREATININE 0.66 mg/dL (0.55-1.30); GLUCOSE 106 mg/dL (70-99); UREA NITROGEN, BLOOD 13 mg/dL (8-21)
[2023-01-11 08:00] VITALS: BP_SYST 132; PULSE 80; RESP 20; TEMP 98.2; O2SAT 98
[2023-01-11] MEDS: CHOLECALCIFEROL (VITAMIN D3) 2,000 UNIT TABLET PO SCH (08:49)
[2023-01-11] MEDS: QUEtiapine FUMARATE 25 MG TABLET PO SCH ×3 (08:49→21:39)
[2023-01-11] MEDS: lisinopriL 5 MG TABLET PO SCH (08:49)
[2023-01-11] MEDS: MULTIVITS,CA,MINERALS/IRON/FA 1 TABLET PO SCH (08:50)
[2023-01-11] MEDS: amLODIPine BESYLATE 5 MG TABLET PO SCH (08:50)
[2023-01-11] MEDS: ASPIRIN 81 MG TABLET(ECOTRIN) PO SCH (08:51)
[2023-01-11] MEDS: ENOXAPARIN SODIUM 60 MG/0.6 ML SYRINGE SUBCUT SCH ×2 (08:52→21:39)
[2023-01-11] MEDS: KCL 10 mEq in D5/0.45NS 1000mL 1,000 ML IV SCH ×2 (08:53→17:15)
[2023-01-11] MEDS: MELOXICAM 7.5 MG TABLET PO SCH (08:53)
[2023-01-11 11:35] VITALS: BP_SYST 121; PULSE 86; RESP 19; TEMP 98.6; O2SAT 95
[2023-01-11 16:54] VITALS: BP_SYST 120; PULSE 77; RESP 16; TEMP 98.4; O2SAT 95
[2023-01-11 20:12] VITALS: BP_SYST 118; PULSE 77; RESP 17; TEMP 98; O2SAT 95
[2023-01-11 22:24] VITALS: O2SAT 95
[2023-01-12 00:48] VITALS: BP_SYST 148; PULSE 74; RESP 18; TEMP 98.4; O2SAT 93
[2023-01-12] MEDS: KCL 10 mEq in D5/0.45NS 1000mL 1,000 ML IV SCH ×3 (03:57→23:00)
[2023-01-12 05:16] LABS: BASOPHILS % (AUTO) 0.6 % (0.0-2.0); EOSINOPHILS # (AUTO) 0.2 K/uL (0.0-0.4); EOSINOPHILS % (AUTO) 2.7 % (0.0-4.0); HEMATOCRIT 29.8 % (36-48); HEMOGLOBIN 10.3 g/dL (12.0-16.0); LYMPHOCYTES # (AUTO) 1.4 K/uL (1.0-5.5); LYMPHOCYTES % (AUTO) 18.6 % (20.5-51.5); MEAN CORPUSCULAR HEMOGLOBIN 30 pg (27-31); MEAN CORPUSCULAR HGB CONC 35 % (32-36); MEAN CORPUSCULAR VOLUME 86 fL (79.0-98.0); MONOCYTES # (AUTO) 0.7 K/uL (0.0-1.0); MONOCYTES % (AUTO) 8.5 % (1.7-9.3); NEUTROPHILS # (AUTO) 5.4 K/uL (1.8-7.7); NEUTROPHILS % (AUTO) 69.6 % (40.0-70.0); PLATELET COUNT (AUTO) 349 K/uL (130-430); RED BLOOD CELL COUNT(AUTO) 3.48 MIL/uL (4.2-6.2); RED CELL DISTRIBUTION WIDTH 13.6 % (9.0-15.0); WHITE BLOOD COUNT (AUTO) 7.7 K/uL (4.8-10.8)
[2023-01-12 06:03] LABS: ALANINE AMINOTRANSFERASE 23 U/L (12-78); ALBUMIN 2.5 g/dL (3.4-4.8); ANION GAP 5 (5-15); ASPARTATE AMINOTRANSFERASE 14 U/L (10-37); CALCIUM 8.2 mg/dL (8.4-11.0); CHLORIDE 102 mmol/L (98-107); CREATININE 0.61 mg/dL (0.55-1.30); GLUCOSE 106 mg/dL (70-99); TOTAL BILIRUBIN 0.4 mg/dL (0.0-1.0); UREA NITROGEN, BLOOD 9 mg/dL (8-21)
[2023-01-12 07:50] VITALS: O2SAT 99
[2023-01-12 08:00] VITALS: BP_SYST 118; PULSE 66; RESP 18; TEMP 97.9; O2SAT 99
[2023-01-12] MEDS: MULTIVITS,CA,MINERALS/IRON/FA 1 TABLET PO SCH (10:24)
[2023-01-12] MEDS: ENOXAPARIN SODIUM 60 MG/0.6 ML SYRINGE SUBCUT SCH ×2 (10:24→21:08)
[2023-01-12] MEDS: ASPIRIN 81 MG TABLET(ECOTRIN) PO SCH (10:24)
[2023-01-12] MEDS: CHOLECALCIFEROL (VITAMIN D3) 2,000 UNIT TABLET PO SCH (10:24)
[2023-01-12] MEDS: MELOXICAM 7.5 MG TABLET PO SCH (10:24)
[2023-01-12] MEDS: amLODIPine BESYLATE 5 MG TABLET PO SCH (10:25)
[2023-01-12] MEDS: lisinopriL 5 MG TABLET PO SCH (10:26)
[2023-01-12] MEDS: QUEtiapine FUMARATE 25 MG TABLET PO SCH ×3 (10:26→21:08)
[2023-01-12 11:20] VITALS: BP_SYST 133; PULSE 69; RESP 16; TEMP 97.7; O2SAT 94
[2023-01-12 15:42] VITALS: BP_SYST 131; PULSE 79; RESP 16; TEMP 97.7; O2SAT 95
[2023-01-12 20:00] VITALS: BP_SYST 152; PULSE 69; RESP 18; TEMP 98; O2SAT 96
[2023-01-13] VITALS: BP_SYST 147; PULSE 87; RESP 18; TEMP 98.4; O2SAT 92
[2023-01-13 05:15] LABS: BASOPHILS % (AUTO) 0.4 % (0.0-2.0); EOSINOPHILS # (AUTO) 0.1 K/uL (0.0-0.4); EOSINOPHILS % (AUTO) 1.2 % (0.0-4.0); HEMATOCRIT 31.7 % (36-48); HEMOGLOBIN 10.7 g/dL (12.0-16.0); LYMPHOCYTES # (AUTO) 1.6 K/uL (1.0-5.5); MEAN CORPUSCULAR HEMOGLOBIN 29 pg (27-31); MEAN CORPUSCULAR HGB CONC 34 % (32-36); MEAN CORPUSCULAR VOLUME 85 fL (79.0-98.0); MONOCYTES % (AUTO) 8.7 % (1.7-9.3); NEUTROPHILS # (AUTO) 8.7 K/uL (1.8-7.7); NEUTROPHILS % (AUTO) 75.7 % (40.0-70.0); PLATELET COUNT (AUTO) 397 K/uL (130-430); RED BLOOD CELL COUNT(AUTO) 3.72 MIL/uL (4.2-6.2); RED CELL DISTRIBUTION WIDTH 13.9 % (9.0-15.0); WHITE BLOOD COUNT (AUTO) 11.5 K/uL (4.8-10.8)
[2023-01-13 05:32] LABS: ANION GAP 5 (5-15); CALCIUM 8.1 mg/dL (8.4-11.0); CHLORIDE 97 mmol/L (98-107); CREATININE 0.63 mg/dL (0.55-1.30); GLUCOSE 109 mg/dL (70-99); UREA NITROGEN, BLOOD 7 mg/dL (8-21)
[2023-01-13 08:00] VITALS: O2SAT 98
[2023-01-13] MEDS: KCL 10 mEq in D5/0.45NS 1000mL 1,000 ML IV SCH ×3 (08:11→20:37)
[2023-01-13] MEDS: MELOXICAM 7.5 MG TABLET PO SCH (09:48)
[2023-01-13] MEDS: ASPIRIN 81 MG TABLET(ECOTRIN) PO SCH (09:48)
[2023-01-13] MEDS: amLODIPine BESYLATE 5 MG TABLET PO SCH (09:49)
[2023-01-13] MEDS: lisinopriL 5 MG TABLET PO SCH (09:50)
[2023-01-13] MEDS: QUEtiapine FUMARATE 25 MG TABLET PO SCH ×3 (09:51→20:36)
[2023-01-13] MEDS: MULTIVITS,CA,MINERALS/IRON/FA 1 TABLET PO SCH (09:51)
[2023-01-13] MEDS: CHOLECALCIFEROL (VITAMIN D3) 2,000 UNIT TABLET PO SCH (09:52)
[2023-01-13] MEDS: ENOXAPARIN SODIUM 60 MG/0.6 ML SYRINGE SUBCUT SCH ×2 (09:53→20:36)
[2023-01-13 11:30] VITALS: BP_SYST 148; PULSE 75; RESP 16; TEMP 97.8; O2SAT 96
[2023-01-13 16:00] VITALS: TEMP 97.9
[2023-01-13 16:04] VITALS: BP_SYST 116; PULSE 69; RESP 16; TEMP 97.1; O2SAT 93
[2023-01-13 20:00] VITALS: BP_SYST 158; PULSE 79; RESP 16; TEMP 97; O2SAT 93
[2023-01-14 01:39] VITALS: BP_SYST 104; PULSE 70; RESP 16; TEMP 97.9; O2SAT 94
[2023-01-14 01:46] VITALS: BP_SYST 95; PULSE 75; RESP 16; TEMP 96.6; O2SAT 70
== END 2023-01-14 03:10 | disposition short-term general hospital (02) | DRG 537 ==
LOC: SED 03:34 → SMU 08:01
PROVIDERS: ADMIT Specialist; ATTEND Specialist
PROC: 0SS9XZZ Reposition Right Hip Joint, External Approach (ICD-10-PCS; principal; 2022-12-23)
DX: S73.014A Posterior dislocation of right hip, initial encounter (principal); E43 Unspecified severe protein-calorie malnutrition; S73.034A Other anterior dislocation of right hip, initial encounter; E87.1 Hypo-osmolality and hyponatremia; Z68.1 Body mass index [BMI] 19.9 or less, adult; F03.C0 Unspecified dementia, severe, without behavioral disturbance, psychotic disturbance, mood disturbance, and anxiety; M81.0 Age-related osteoporosis without current pathological fracture; Z20.822 Contact with and (suspected) exposure to COVID-19; W18.39XA Other fall on same level, initial encounter; D72.829 Elevated white blood cell count, unspecified; E83.52 Hypercalcemia; D64.9 Anemia, unspecified; R73.9 Hyperglycemia, unspecified; E88.09 Other disorders of plasma-protein metabolism, not elsewhere classified; I10 Essential (primary) hypertension; Z88.1 Allergy status to other antibiotic agents; Z88.5 Allergy status to narcotic agent; Z79.01 Long term (current) use of anticoagulants; Y93.89 Activity, other specified; Y92.89 Other specified places as the place of occurrence of the external cause; Y99.8 Other external cause status
CPT/HCPCS: 36415; 70450-TC; 71045; 72125-TC; 72192-TC; 73502; 76376; 80048; 80053; 81000; 83735; 84100; 84484; 85025; 85610-TC; 85730-TC; 86886; 86900; 86901; 87081; 87086; 93005; 93306; 96361; 96374; 96375; 96376; 97110-GP; 97112-GP; 97163-GP; 97530-GP; 99291; J0696; J1650; J2270; J2405; J2704; J3480; J7030; J7050